=== PATIENT | female | born 1975 | race Two or more races ===

== ENCOUNTER 2019-12-12 10:17 | Inpatient (IN) | payer OTHER ==
[~2019-12-12] VITALS: Ht 162.6 cm; Wt 99.8 kg
[2019-12-25] MEDS ORDERED: PAXIL20 MG PO (10:35)
[2019-12-25] MEDS ORDERED: ZIAC 2.5-6.251 EACH PO (10:36)
[2019-12-25] MEDS ORDERED: CLONAZEPAM1 M1 PO (10:36)
[2020-01-04] MEDS ORDERED: TRAZODONE HCL50 MG (09:07)
[2020-01-04] MEDS ORDERED: PAXIL30 MG PO (09:07)
[2020-01-04] MEDS ORDERED: PAXIL20 MG PO (09:09)
[2020-01-07] MEDS ORDERED: PRILOSEC OTC20 MG PO (13:45)
[2020-01-07] MEDS ORDERED: INTESTINEX680 M1 PO (13:45)
[2020-01-07] MEDS ORDERED: PERCOCET 5-3251 EACH PO (13:45)
== END 2020-01-07 14:29 | disposition home or self-care (01) | DRG 330 ==
LOC: SURH 01-01 09:15 → O/R 01-04 07:14 → SURH 01-04 09:15
PROVIDERS: ADMIT Surgery
PROC: 0DBN4ZZ Excision of Sigmoid Colon, Percutaneous Endoscopic Approach (ICD-10-PCS; 2020-01-04)
PROC: 0DNW4ZZ Release Peritoneum, Percutaneous Endoscopic Approach (ICD-10-PCS; 2020-01-04)
PROC: 0TQB4ZZ Repair Bladder, Percutaneous Endoscopic Approach (ICD-10-PCS; 2020-01-04)
PROC: 0DBM4ZZ Excision of Descending Colon, Percutaneous Endoscopic Approach (ICD-10-PCS; principal; 2020-01-04 12:45)
DX: K57.32 Diverticulitis of large intestine without perforation or abscess without bleeding (principal); N99.72 Accidental puncture and laceration of a genitourinary system organ or structure during other procedure; N73.6 Female pelvic peritoneal adhesions (postinfective); K63.89 Other specified diseases of intestine; I11.9 Hypertensive heart disease without heart failure; G47.33 Obstructive sleep apnea (adult) (pediatric)